=== PATIENT | male | born 1975 | race Caucasian/White ===

== ENCOUNTER → 2017-12-07 | Outpatient (CLI) | payer OTHER ==
[2017-12-07 10:24] LABS: ALT 80 U/L (21-72); AST 50 U/L (17-59); Anion Gap 11 mmol/L; Blood Urea Nitrogen 13 mg/dL (9-20); Calcium 9.4 mg/dL (8.4-10.2); Carbon Dioxide 26 mmol/L (22-30); Chloride 104 mmol/L (98-107); Cholesterol 203 mg/dL (<200); Glucose 107 mg/dL (74-99); HDL Cholesterol 51 mg/dL (40-60); LDL Cholesterol,Calculated 130 mg/dL (0-99); Magnesium 2.1 mg/dL (1.6-2.3); Phosphorus 3.8 mg/dL (2.5-4.5); Potassium 4.4 mmol/L (3.5-5.1); Sodium 141 mmol/L (137-145); Triglycerides 110 mg/dL (<150)
== END | disposition home or self-care (01) ==
LOC: LABWHC1 09:32
PROVIDERS: ATTEND Nurse Practitioner Adult Health
DX: E78.2 Mixed hyperlipidemia (principal)
CPT/HCPCS: 36415; 80048; 80061; 83735; 84100; 84450; 84460

== ENCOUNTER → 2019-05-09 | Outpatient (CLI) | payer OTHER ==
--- NOTE | 2019-05-09 08:23 | XR ---
EXAMINATION TYPE: XR shoulder complete RT DATE OF EXAM: 05/09/2019 CLINICAL HISTORY: Right shoulder pain since February. No stated trauma. TECHNIQUE: Three views of the right shoulder are obtained. COMPARISON: None. FINDINGS: There is no acute fracture/dislocation evident in the right shoulder. The acromioclavicul ar and glenohumeral joint spaces appear aligned with moderate acromioclavicular arthropathy demonstra shira as capsular hypertrophy, marginal osteophytes and joint space narrowing. The visualized ribs are intact and unremarkable. Partially visualized sternotomy wires. IMPRESSION: There is no acute fracture or dislocation in the right shoulder. Moderate acromioclavicu lar arthropathy.
[2019-05-09 08:29] LABS: Basophils # (A) 0.1 k/uL (0-0.2); Basophils % (A) 1 %; Eosinophils # (A) 0.3 k/uL (0-0.7); Eosinophils % (A) 4 %; HCT 49.4 % (39.0-53.0); Lymphocytes # (A) 1.1 k/uL (1.0-4.8); Lymphocytes % (A) 15 %; MCH 30.7 pg (25.0-35.0); MCHC 34.3 g/dL (31.0-37.0); MCV 89.4 fL (80.0-100.0); Monocytes # (A) 0.6 k/uL (0-1.0); Monocytes % (A) 8 %; Neutrophils # (A) 5.2 k/uL (1.3-7.7); Neutrophils % (A) 70 %; Platelet Count 174 k/uL (150-450); RBC 5.53 m/uL (4.30-5.90); WBC 7.4 k/uL (3.8-10.6)
[2019-05-09 16:05] LABS: African American GFR (CKD) 120.8 (60.0-200.0); Albumin 4.4 g/dL (3.80-4.90); Albumin/Globulin Ratio 2.2 (1.60-3.17); Anion Gap 6.6 mmol/L (4.00-12.00); BUN/Creat Ratio 14.44 Ratio (12.00-20.00); Calcium 9.2 mg/dL (8.7-10.3); Carbon Dioxide 27.4 mmol/L (21.6-31.8); Chol/HDL Ratio 3.94; LDL Cholesterol,Calculated 113.8 mg/dL (0.0-131.0); Potassium 4.9 mmol/L (3.5-5.5); Total Bilirubin 0.7 mg/dL (0.3-1.2); Total Protein 6.4 g/dL (6.2-8.2); VLDL Calculation 30.2 mg/dL (5.00-40.00)
== END | disposition home or self-care (01) ==
LOC: LABWHC1 07:14
PROVIDERS: ATTEND Family Medicine
DX: M19.011 Primary osteoarthritis, right shoulder (principal); I10 Essential (primary) hypertension; R55 Syncope and collapse; Z12.5 Encounter for screening for malignant neoplasm of prostate
CPT/HCPCS: 36415; 80053; 80061; 84153; 84443; 85025

== ENCOUNTER → 2019-12-12 | Outpatient (CLI) | payer BC ==
[2019-12-12 16:41] LABS: African American GFR (CKD) 120.8 (60.0-200.0); Anion Gap 7.5 mmol/L (4.00-12.00); BUN/Creat Ratio 16.67 Ratio (12.00-20.00); Calcium 8.6 mg/dL (8.7-10.3); Carbon Dioxide 23.5 mmol/L (21.6-31.8); Non-African American GFR(CKD) 104.2 (60.0-200.0); Potassium 4.4 mmol/L (3.5-5.5)
== END | disposition home or self-care (01) ==
LOC: LABWHC1 09:33
PROVIDERS: ATTEND Internal Medicine Clinical Cardiac Electrophysiology
DX: I71.9 Aortic aneurysm of unspecified site, without rupture (principal)
CPT/HCPCS: 36415; 80048

== ENCOUNTER → 2019-12-19 | Outpatient (CLI) | payer BC ==
--- NOTE | 2019-12-19 09:46 | CT ---
EXAMINATION TYPE: CT angio chest DATE OF EXAM: 12/19/2019 COMPARISON: None HISTORY: thoracic aortic aneurysm CT DLP: 834 mGycm CONTRAST: CTA thoracic aorta with 3-D reconstruction is performed and without and with IV Contrast, patient inj ected with 100 mL of Isovue 370. Contrast CTA of the thoracic aorta was performed from the lung apex through the upper abdomen. 3D re construction imaging obtained at a separate workstation. CT Chest: THORACIC AORTA: Uncomplicated ascending thoracic aortic aneurysm measuring 4.5 cm AP dimension. Aorti c arch and descending thoracic aorta are of normal caliber. Mild atheromatous changes seen. There is no evidence for dissection or periaortic collection. LUNGS: The lungs are clear and free of infiltrate or atelectasis. No pulmonary nodule or mass is det ected. No pleural effusion or CT evidence of interstitial lung disease. MEDIASTINUM: No evidence for mediastinal hematoma. The heart is not enlarged. No evidence for med iastinal mass or adenopathy. HILAR STRUCTURES: No evidence for mass. No hilar adenopathy is appreciated. OTHER: Hepatic steatosis noted. IMPRESSION- Uncomplicated ascending thoracic aortic aneurysm measuring 4.5 cm AP dimension.
== END | disposition home or self-care (01) ==
LOC: RADCTMAIN 08:16
PROVIDERS: ATTEND Internal Medicine Clinical Cardiac Electrophysiology
DX: I71.2 Thoracic aortic aneurysm, without rupture (principal)
CPT/HCPCS: 71275; Q9967

== ENCOUNTER → 2023-07-02 | Outpatient (CLI) | payer BC ==
[2023-07-02 15:12] LABS: Basophils # (A) 0.09 X 10*3/uL (0.00-0.10); Basophils % (A) 1.4 %; Eosinophils # (A) 0.39 X 10*3/uL (0.04-0.35); Eosinophils % (A) 5.9 %; HCT 47.3 % (39.6-50.0); HGB 16.4 g/dL (13.0-17.0); Lymphocytes # (A) 0.87 X 10*3/uL (0.90-5.00); Lymphocytes % (A) 13.1 %; MCH 30.4 pg (27.0-32.0); MCHC 34.7 g/dL (32.0-37.0); MCV 87.6 FL (80.0-97.0); Mean Platelet Volume 13.2 FL (9.5-12.2); Monocytes # (A) 0.75 X 10*3/uL (0.20-1.00); Monocytes % (A) 11.3 %; NRBC Per 100 WBC 0 X 10*3/uL (0.00-0.01); Neutrophils # (A) 4.42 X 10*3/uL (1.80-7.70); Neutrophils % (A) 66.8 %; Platelet Count 149 X 10*3/uL (140-440); RDW 13.5 % (11.5-14.5); WBC 6.62 X 10*3/uL (4.50-10.00)
[2023-07-02 15:39] LABS: ALT 60 U/L (10-49); AST 37 U/L (14-35); Albumin 4.5 g/dL (3.8-4.9); Albumin/Globulin Ratio 1.96 Ratio (1.60-3.17); Alkaline Phosphatase 69 U/L (41-126); BUN/Creat Ratio 14.67 Ratio (12.00-20.00); Blood Urea Nitrogen 13.2 mg/dL (9.0-27.0); Calcium 9.4 mg/dL (8.7-10.3); Carbon Dioxide 21.9 mmol/L (21.6-31.8); Chloride 105 mmol/L (96-109); Globulin 2.3 g/dL (1.6-3.3); Glucose 118 mg/dL (70-110); LDL Cholesterol,Calculated 98.4 mg/dL (0.0-131.0); Potassium 4.4 mmol/L (3.5-5.5); Prostate Specific Antigen 0.84 ng/mL (0.000-2.500); Sodium 140 mmol/L (135-145); Total Bilirubin 0.6 mg/dL (0.3-1.2); Total Protein 6.8 g/dL (6.2-8.2)
== END | disposition home or self-care (01) ==
LOC: LABWHC1 07:14
PROVIDERS: ATTEND Family Medicine
DX: Z00.00 Encounter for general adult medical examination without abnormal findings (principal); Z12.5 Encounter for screening for malignant neoplasm of prostate; I10 Essential (primary) hypertension; E55.9 Vitamin D deficiency, unspecified; Z95.2 Presence of prosthetic heart valve
CPT/HCPCS: 36415; 80053; 80061; 82306; 84153; 84443; 85025

== ENCOUNTER → 2024-02-07 | Outpatient (CLI) | payer BC ==
--- NOTE | 2024-03-10 12:37 | CONS ---
CONSULTATION A 48-year-old gentleman, has been evaluated in Sleep Center for possible obstructive sleep apnea-hypopnea syndrome and 4 episodes of sleepwalking, [id number] movements. HISTORY OF PRESENT ILLNESS: Sleep-Wake evaluation: The patient had sleep study around 2012, and at that time, has been told that no significant respiratory abnormalities have been documented, but he had a short REM sleep latency during the sleep study. Presently, his sleep schedule from 10 p.m. to 5:30 a.m. on weekdays and until 8 a.m. on weekend. Usually, no significant problems with falling asleep, no TV in bedroom. The patient sleeps in different positions with very loud snoring and witnessed episodes of stopped breathing during the sleep, including during colonoscopy. The patient wakes up from sleep 2 times with nocturia. Sometimes positive history of hypnagogic hallucinations, no sleep paralysis, no cataplexy. In the morning, the patient wakes up tired, falling asleep during the day. [place] Sleepiness Scale increased to 12. PAST MEDICAL HISTORY: Positive for bicuspid aortic valve and aortic stenosis, hypertension. PAST SURGICAL HISTORY: Aortic valve replacement with artificial valve, abdominal hernia repair. MEDICATIONS: 1. Warfarin 5 mg once a day. 2. Amlodipine twice a day. 3. Pravastatin. 4. Metoprolol. SOCIAL HISTORY: Negative for smoking. Alcohol consumption daily. REVIEW OF SYSTEMS: Loud snoring, multiple awakenings from sleep, sleepiness during the day. No fevers. No double vision. No recent chest pain. No shortness of breath. No abdominal pain. No bleeding episodes. No blood in the urine. No seizure episodes. FAMILY HISTORY: Cancer, diabetes mellitus, thyroid problems. PHYSICAL EXAMINATION: GENERAL: gentleman without distress. VITAL SIGNS: BP 132/88 , HR 52 , RR 16, height 5 feet 8-3/4 inches, weight 207.6 pounds, BMI 30.8, temperature 98.2, oxygen saturation at room air 98%. HEENT: Oropharynx; white peels, short distance between soft palate and posterior pharyngeal wall. NECK: 16-3/4 inches in circumference. LUNGS: Clear to percussion and to auscultation. Good air exchange. No wheezing or rhonchi. HEART: S1, S2 regular, sounds of artificial aortic valve. ABDOMEN: Soft and nontender. Bowel sounds are present. No organomegaly appreciated. EXTREMITIES: No clubbing or cyanosis. FIELD CARE ADVOCATE: Awake, alert, and oriented X3. Cranial nerves 2 to 7 intact. There is no fasciculation or atrophy. noted. No focal deficits observed. IMPRESSION: 1. Loud snoring, witnessed episodes of stopped breathing during sleep, small oropharyngeal airspace, awakenings from sleep, sleepiness during the day. Obstructive sleep apnea-hypopnea syndrome. 2. History of episodes of sleepwalking. 3. History of episodes of [id number]-ua-[id number] movements. Possibly REM sleep behavioral disorder. 4. Sleep talking. 5. Significant amount of movements during the leg movements during the night, possibly periodic limb movements. 6. Mild obesity with body mass index 30.8. 7. Status post aortic valve replacement with artificial valve for aortic stenosis and bicuspid valve. 8. Status post abdominal hernia repair. PLAN: 1. Polysomnography for evaluation of the patient breathing during the sleep, to check for possible periodic limb movements, and to check for possible parasomnia. 2. Sleep hygiene with time in bed for at least 8 hours. 3. Following plan after reading sleep study. 4. Precautions related to driving. No driving if feeling sleepiness. 5. Watching and losing weight. 6. Preferable position during sleep on the side. Thank you very much for referring this patient for consultation. MMODL / IJN: [id number] / ERIN
== END ==
LOC: 3 N SLEEP 13:40
PROVIDERS: ATTEND Internal Medicine
CPT/HCPCS: 99211

== ENCOUNTER 2024-03-23 19:49 | Outpatient (CLI) | payer BC ==
--- NOTE | 2024-03-27 11:39 | P.PCN ---
Description of Procedure: POLYSOMNOGRAPHY REPORT PROCEDURE(S)/DATE(S): Polysomnography 03/23/2024 CLINICAL: Patient has been seen in the sleep center for evaluation of obstructive sleep apnea-hypopnea syndrome. Please see my consultation. Sleep study has been done for evaluation of patient breathing during the sleep. PROCEDURE: The standard montage for clinical polysomnography included the electroencephalogram, the electrooculogram, the mentalis surface electromyography and Lead II cardiography. The respiratory battery consisted of measurements of nasal/buccal air flow, pressure transducer measurements from nose, thoracic and/or abdominal effort and intercostal surface electromyography. Video monitoring has been done to check for any parasomnia events. Nocturnal oxyhemoglobin saturations were obtained by finger oximetry. Step-betts titration with positive airway pressure was utilized to control the respiratory events, if necessary. RESULTS: During the diagnostic sleep study sleep efficiency was significantly decreased to 61.8%. Latency to sleep onset was normal 23.5 min. Sleep architecture showed stage NI was extremely high 39.2%, Delta sleep was absent 0%, REM sleep was decreased to 15.9%. Respiratory channel showed 0 obstructive apneas, 0 mixed apneas, 0 central apneas, 10 hypopneas with lowest oxygen level 89%. Total apnea hypopnea index was 1.6. Heart rate was in the range between 51 and 55, average 53. EMG showed 0 periodic limb movements per hour with 0 micro-arousals per hour. IMPRESSIONS: 1. No significant respiratory abnormalities have been documented during the sleep study, no significant oxygen desaturation. 2. No significant periodic limb movements have been documented. 3. Loud snoring have been documented Please see other impressions from consultation PLAN: 1. I will see patient for follow-up visit to explain results of the test and recommendations. 2. Losing weight program. 3. Sleep hygiene with regular time in bed for at least 7-1/2 hours. 4. No driving if feeling sleepiness. Thank you very much for allowing me to participate in the management of your patient. Sincerely, Hang Ventura MD, PhD, FAASM. Diplomat of [place] [employer], Sleep Medicine Board by [place] [employer] Field Project Manager of [facility] [place] cc: Grey Rudolph MD
== END 2024-03-24 05:35 | disposition home or self-care (01) ==
LOC: 3 N SLEEP 19:49
PROVIDERS: ATTEND Internal Medicine
CPT/HCPCS: 95810

== ENCOUNTER → 2024-04-04 | Outpatient (CLI) | payer BC ==
--- NOTE | 2024-04-11 10:16 | CT ---
EXAMINATION TYPE: CT angio chest DATE OF EXAM: 04/04/2024 COMPARISON: 12/19/2019 HISTORY: Aneurysm of ascending aorta w/o rupture. CT DLP: 935.1 mGycm CONTRAST: CTA thoracic aorta with 3-D reconstruction is performed and with IV Contrast, patient injected with 1 00ml mL of Isovue 370. Contrast CTA of the thoracic aorta was performed from the lung apex through the upper abdomen. 3D re construction imaging obtained at a separate workstation. CT Chest: THORACIC AORTA: Ascending thoracic aorta measures 4.7 cm versus 4.7 cm previously. Mild atheromatous changes seen. There is no evidence for dissection or periaortic collection. LUNGS: The lungs are clear and free of infiltrate or atelectasis. No pulmonary nodule or mass is det ected. No pleural effusion or CT evidence of interstitial lung disease. MEDIASTINUM: No evidence for mediastinal hematoma. The heart is enlarged. No evidence for medias tinal mass or adenopathy. HILAR STRUCTURES: No evidence for mass. No hilar adenopathy is appreciated. OTHER: No significant abnormality. IMPRESSION- Stable uncomplicated ascending thoracic aortic aneurysm. [facility], , 04/11/2024 10:13 AM
== END | disposition home or self-care (01) ==
LOC: RADCTMAIN 15:23
PROVIDERS: ATTEND Internal Medicine Clinical Cardiac Electrophysiology
DX: I71.21 Aneurysm of the ascending aorta, without rupture (principal)
CPT/HCPCS: 71275

== ENCOUNTER → 2024-05-28 | Outpatient (CLI) | payer BC ==
[2024-05-28 15:22] VITALS: BP 143/92; PULSE 56; RESP 16; TEMP 97.7
--- NOTE | 2024-05-28 16:06 | P.PROGSL ---
Subjective DATE: 05/28/2024 FOLLOW UP VISIT. Patient returned to sleep center for follow-up visit to discuss results of polysomnogram and following plan. I discussed results of sleep study with patient in details. No significant respiratory abnormalities have been documented during the sleep study. Normal oxygenation during sleep. No periodic limb movements have been documented. At the same time patient has symptoms of excessive daytime sleepiness. [place] Sleepiness Scale today is 10. Patient sometimes feel tiredness and sleepiness during the day. I discussed with the patient possibility for objective evaluation 6 sleepiness with multiple sleep latency test if necessary. MEDICATIONS: Please see below During physical exam: GENERAL: A pleasant patient without any distress. VITAL SIGNS: Please see below, weight 213 pounds. HEENT: PERRLA, EOMI. NECK: Supple. No JVD. LUNGS: Clear to percussion and to auscultation. Good air exchange. No wheezing or rhonchi. HEART: S1, S2 regular. ABDOMEN: Soft and nontender. EXTREMITIES: No clubbing or cyanosis. SYSTEM ADMIN: Awake, alert, and oriented x3. No focal deficit. Impressions: 1. No significant respiratory abnormalities have been documented during the sleep study. Normal oxygenation during sleep. 2. No periodic limb movements have been documented.. 3. Patient sleeps at home usually around 8 hours, which is in normal range, but feel tiredness and sleepiness during the day. Differential diagnosis include long sleeper versus idiopathic hypersomnia and narcolepsy. 4. Mild obesity, BMI 32.3. 5. Hypertension. 6. Hyperlipidemia. 7. Status post aortic valve replacement. Plan: 1. Patient will increase time in bed to 9 hours per night, possibly long sleeper. If with increasing time in bed he will continue to feel sleepiness during the day we will do multiple sleep latency test for differential diagnosis with hypersomnia and narcolepsy 2. Precautions related to driving. No driving if feel any sleepiness. Patient is aware about civil and criminal liability for unsafe driving, promised to follow recommendations. 3. Losing weight. 4. Preferable position during sleep on the side. Thank you very much for allowing me to participate in the management of your patient. Hang Ventura MD, PhD, FAASM. Diplomat of [place] [employer], Sleep Medicine Board by [place] [employer] Laboratory Administrative Director of [facility] [place] cc: Grey Rudolph MD Objective - Vital Signs Vital Signs: Vital Signs Temp 97.7 F 05/28/24 15:21 Pulse 56 L 05/28/24 15:21 Resp 16 05/28/24 15:21 BP 143/92 05/28/24 15:21 Pulse Ox 98 05/28/24 15:21 FiO2 Intake & Output 05/27/24 05/28/24 05/28/24 18:59 06:59 18:59 Weight 96.615 kg Home Medications: Home Medications Medication Instructions Recorded Confirmed Type Albuterol Inhaler [Ventolin Hfa 1 - 2 puff INHALATION Q6HR PRN 05/01/17 05/28/24 History Inhaler] Metoprolol Tartrate [Lopressor] 50 mg PO BID 05/01/17 05/03/17 History Warfarin [Coumadin] 5 mg PO TUTH 05/01/17 05/28/24 History Warfarin [Coumadin] 7.5 mg PO SUMOWEFRSA 05/01/17 05/03/17 History amLODIPine [Norvasc] 10 mg PO DAILY 05/01/17 05/28/24 History Metoprolol Tartrate [Lopressor] 12.5 mg PO DAILY 05/28/24 05/28/24 History Pravastatin Sodium [Pravachol] 20 mg PO DAILY 05/28/24 05/28/24 History
== END ==
LOC: 3 N SLEEP 15:14
PROVIDERS: ATTEND Internal Medicine
DX: G47.10 Hypersomnia, unspecified (principal); E66.9 Obesity, unspecified; I10 Essential (primary) hypertension; E78.5 Hyperlipidemia, unspecified; Z98.890 Other specified postprocedural states; Z95.4 Presence of other heart-valve replacement; Z68.32 Body mass index [BMI] 32.0-32.9, adult; Z79.899 Other long term (current) drug therapy; Z87.891 Personal history of nicotine dependence
CPT/HCPCS: 99212